=== PATIENT | female | born 1980 | race Caucasian/White ===

== ENCOUNTER → 2019-08-07 | Emergency (ER) | payer MEDICAID ==
[~2019-08-07] VITALS: Ht 160 cm; Wt 63.5 kg
[~2019-08-07] MED LIST: HYDROCODONE/APAP 5/325MG 1 EACH TABLET ONE; HYDROCODONE/APAP 5/325MG 1 EACH TABLET PO ONE; ONDANSETRON 4 MG TAB.RAPDIS ONE; ONDANSETRON 4 MG TAB.RAPDIS SL ONE
--- NOTE | 2019-08-07 15:14 | NUR ---
Patient Dc home intruction given agrees to see PMD in 1 day follow up and prescrition given ,EMt @ bedside for sugar tong
[2019-08-07 15:15] VITALS: BP 123/67
== END | disposition home or self-care (01) ==
LOC: ER 13:18
DX: S52.571A Other intraarticular fracture of lower end of right radius, initial encounter for closed fracture (principal); F90.9 Attention-deficit hyperactivity disorder, unspecified type; V43.52XA Car driver injured in collision with other type car in traffic accident, initial encounter; Y93.89 Activity, other specified; Y92.413 State road as the place of occurrence of the external cause; Y99.8 Other external cause status
CPT/HCPCS: 29125; 73110; 99283; Q0162